=== PATIENT | male | born 1990 | race Caucasian/White ===

== ENCOUNTER → 2018-05-17 | Outpatient (CLI) | payer SELFPAY ==
[~2018-05-17] MED LIST: ABILIF5PT PO; CITA-145 PO; NYST15CR32 TP; OMEP-137 PO; PROL80 PO
[2018-05-17 14:45] LABS: PLATELET COUNT, AUTOMATED 418 K/uL (150-450)
== END ==
LOC: LAB 14:15
PROVIDERS: ATTEND Internal Medicine
DX: K21.9 Gastro-esophageal reflux disease without esophagitis (principal); F32.9 Major depressive disorder, single episode, unspecified; F41.9 Anxiety disorder, unspecified; F31.81 Bipolar II disorder
CPT/HCPCS: 36415; 81001; 82040; 82150; 82247; 82310; 82374; 82435; 82565; 82947; 83690; 84075; 84132; 84155; 84295; 84443; 84450; 84460; 84520; 85025

== ENCOUNTER 2018-08-17 17:16 | Emergency (ER) | payer OTHER ==
[~2018-08-17 17:16] MED LIST changes: -HYDR-4225
--- NOTE | 2018-08-17 17:24 | ER Report ---
History and Physical Time Seen By MD: 17:24 HPI/ROS CHIEF COMPLAINT: Abdominal pain HISTORY OF PRESENT ILLNESS: This is a 28-year-old female presents to the emergency department for abdominal pain. Patient states that around 10:00 last night she developed some right lower quadrant pain, progressively getting worse, some nausea no vomiting. Low-grade subjective fevers at home. Was seen and evaluated at urgent care today, white count of 13.7, had a negative UA, negative urine . Was trying scheduled for an outpatient ultrasound for tomorrow, patient states the pain became worse tonight therefore decided come in for further evaluation. Patient continues to have right lower quadrant pain, last bowel movement was about one and half to 2 days ago, this is not unusual for the patient. No dysuria. No shortness of breath or chest pain. REVIEW OF SYSTEMS: Constitutional: As above. Eyes: No discharge. ENT: No sore throat. Cardiovascular: No chest pain, no palpitations. Respiratory: No cough, no shortness of breath. Gastrointestinal: As above. Genitourinary: No hematuria. Musculoskeletal: No back pain. Skin: No rashes. Neurological: No headache. Allergies: Coded Allergies: No Known Drug Allergies (Unverified , 08/17/18) Home Meds Active Scripts Propranolol Hcl (PROPRANOLOL HCL) 80 Mg Capcr, 80 MG PO QDAY, #30 TAB 3 Refills Prov:MATT BURCIAGA MD 05/17/18 Omeprazole (OMEPRAZOLE) 20 Mg Tablet.dr, 20 MG PO QDAY, #30 TAB Prov:MATT BURCIAGA MD 05/17/18 Reported Medications Hydroxyzine Hcl (HYDROXYZINE HCL) 25 Mg Tablet 08/17/18 Aripiprazole (ABILIFY) 5 Mg Tablet, 5 MG PO QDAY, TAB 05/17/18 Citalopram Hydrobromide (CITALOPRAM HBR) 20 Mg Tablet, 20 MG PO QDAY, #5 TAB 05/17/18 Discontinued Scripts NYSTATIN [id number] UNT/ML Topical Cream (NYSTATIN 697161 UNT/ML Topical Cream) 15 Gm Cream..g., 15 GM TP BID, #15 GM 2 Refills Prov:MATT BURCIAGA MD 05/17/18 Past Medical/Surgical History Patient has a past medical and surgical history of headaches, GERD, bipolar, depression, anxiety, previous suicide attempt. Reviewed Nurses Notes: Yes Smoking Status: Never Smoker Constitutional Vital Sign - Last 24 Hours 08/17/18 08/17/18 08/17/18 08/17/18 17:21 17:30 17:45 18:15 Temp 98.4 Pulse 115 99 98 88 Resp 16 B/P (MAP) 114/75 113/79 (90) Pulse Ox 96 95 96 93 O2 Delivery Room Air 08/17/18 08/17/18 08/17/18 08/17/18 18:20 18:30 18:50 19:00 Pulse 85 74 B/P (MAP) 110/68 (82) 110/68 (82) Pulse Ox 91 94 Physical Exam General Appearance: The patient is alert, has no immediate need for airway protection and no signs of toxicity. Eyes: Pupils equal and round no pallor or injection. ENT, Mouth: Mucous membranes are moist. Respiratory: There are no retractions, lungs are clear to auscultation. Cardiovascular: Regular rate and rhythm. Gastrointestinal: Abdomen is soft, tenderness to the right lower quadrant, no rebound tenderness, mild discomfort to the right upper quadrant negative Villatoro sign. Normoactive bowel sounds, no masses or abdominal bruits. Neurological: Alert and oriented 4. Moving all cavities. Following. No focal neuro deficits. Skin: Warm and dry, no rashes. Musculoskeletal: Neck is supple non tender. Extremities are nontender, nonswollen and have full range of motion. DIFFERENTIAL DIAGNOSIS: After history and physical exam differential diagnosis was considered for abdominal pain in a female including but not limited to ovarian cyst, pelvic inflammatory disease, ovarian torsion, urinary tract infection, and appendicitis. Medical Decision Making EKG/Imaging Imaging PATIENT NAME: Juni Weldon : 1990 MR: [id number] V: [id number] EXAM DATE: ORDERING PHYSICIAN: TAMIKO JEAN BAPTISTE TECHNOLOGIST: Location: [facility] Patient: Juni Weldon : 1990 Visit/Account:[id number] Date of Sevice: 08/17/2018 EXAMINATION: CT abdomen with IV contrast CT pelvis with IV contrast HISTORY: Right lower quadrant abdominal pain and vomiting. COMPARISON: None. TECHNIQUE: Axial images were taken through the abdomen and pelvis with intravenous contrast. Sagittal and coronal reformatted images are also submitted. CONTRAST: 75 mL of IV Isovue-370 One of the following dose optimization techniques was utilized in the performance of this exam: Automated exposure control; adjustment of the mA and/or kV according to the patient's size; or use of an iterative reconstruction technique. Specific details can be referenced in the facility's radiology CT exam operational policy. FINDINGS: Liver/biliary: Negative. Pancreas: Negative. Spleen: Negative. Adrenal glands: Negative. Kidneys: Negative. Pelvic structures: Negative. Bowel: The bowel is normal caliber without obvious focal wall thickening. The appendix is normal. Peritoneum/retroperitoneum/mesenteries: Negative. No intraperitoneal free air or free fluid. Vessels: Negative. Musculoskeletal/body wall: Negative. Lymph node assessment: Negative. Lower chest: Negative. IMPRESSION: No CT evidence of acute pathology in the abdomen or pelvis. Normal appendix. Report Dictated By: Dawood Vallecillo MD at 08/17/2018 6:17 PM Report E-Signed By: Dawood Vallecillo MD at 08/17/2018 6:35 PM WSN:[id number] ED Course/Re-evaluation Clinical Indication for ER IV: IV Access ED Course The patient was admitted to room. A history and physical were obtained. Differential diagnoses were considered. I did not repeat the patient's laboratory studies as she had studies completed earlier today, I did a CT of the and pelvis which was negative for acute appendicitis, no intra-abdominal pathology identified. I did review the results with the patient. I did tell the patient is could be an early onset gastroenteritis, likely viral and will likely pass however I did recommend following up with her primary care provider for reevaluation. Patient expressed understanding, was agreeable with this plan care and discharged home. She was also given a 1 L normal saline bolus while in the ER, 4 mg IV Zofran, 4 mg IV morphine. Decision to Disposition Date: Aug 17, 2018 Decision to Disposition Time: 18:52 Depart Departure Latest Vital Signs Vital Signs Date Time Temp Pulse Resp B/P (MAP) Pulse Ox O2 Delivery O2 Flow Rate FiO2 08/17/18 19:00 110/68 (82) 08/17/18 18:50 74 94 08/17/18 17:21 98.4 16 Room Air Impression: Primary Impression: Abdominal pain Condition: Improved Disposition: HOME OR SELF-CARE Referrals: MATT BURCIAGA MD (PCP) 5 Days Patient Instructions: Acute Abdominal Pain (DC) Additional Instructions: There is no indication of appendicitis on your CT scan. You could be experiencing an early gastroenteritis, viral in nature and will likely pass. Please follow up with your PCP within the next 1-4 days for reevaluation. If you have worsening pain, fevers, chills return to the ED for reevaluation. Take Ibuprofen or Tylenol as needed for pain. Get plenty of rest. Drink plenty of water. Problem Qualifiers Primary Impression: Abdominal pain Abdominal location: right lower quadrant Qualified Codes: R10.31 - Right lower quadrant pain TAMIKO JEAN BAPTISTE GAS PRODUCER-BC Aug 17, 2018 17:24
[2018-08-17] MEDS ORDERED: HYDR-4225 (17:26)
[2018-08-17] MEDS ORDERED: NS(*) 0.9% 1000 ML BAG 1,000 ML IV ONE (17:37)
[2018-08-17] MEDS ORDERED: MORPHINE 4 MG/ML SDV IVP ONE (17:40)
[2018-08-17] MEDS ORDERED: ONDANSETRON 4 MG/2 ML VIAL IVP ONE (17:40)
[2018-08-17] MEDS ORDERED: IOPAMIDOL 76% 100 ML INFUS BTL 100 ML ONE (18:02)
--- NOTE | 2018-08-17 18:38 | RADIOLOGY IMAGING REPORT ---
FACILITY: [facility] [place] PATIENT NAME: Juni Weldon : 1990 MR: [id number] V: [id number] EXAM DATE: ORDERING PHYSICIAN: TAMIKO JEAN BAPTISTE TECHNOLOGIST: Location: [facility] Patient: Juni Weldon : 1990 Visit/Account:[id number] Date of Sevice: 08/17/2018 EXAMINATION: CT abdomen with IV contrast CT pelvis with IV contrast HISTORY: Right lower quadrant abdominal pain and vomiting. COMPARISON: None. TECHNIQUE: Axial images were taken through the abdomen and pelvis with intravenous contrast. Sagitt al and coronal reformatted images are also submitted. CONTRAST: 75 mL of IV Isovue-370 One of the following dose optimization techniques was utilized in the performance of this exam: Autom ated exposure control; adjustment of the mA and/or kV according to the patient's size; or use of an i terative reconstruction technique. Specific details can be referenced in the facility's radiology C T exam operational policy. FINDINGS: Liver/biliary: Negative. Pancreas: Negative. Spleen: Negative. Adrenal glands: Negative. Kidneys: Negative. Pelvic structures: Negative. Bowel: The bowel is normal caliber without obvious focal wall thickening. The appendix is normal. Peritoneum/retroperitoneum/mesenteries: Negative. No intraperitoneal free air or free fluid. Vessels: Negative. Musculoskeletal/body wall: Negative. Lymph node assessment: Negative. Lower chest: Negative. IMPRESSION: No CT evidence of acute pathology in the abdomen or pelvis. Normal appendix. Report Dictated By: Dawood Vallecillo MD at 08/17/2018 6:17 PM Report E-Signed By: Dawood Vallecillo MD at 08/17/2018 6:35 PM WSN:[id number]
[2018-08-17 19:00] VITALS: BP 110/68
== END 2018-08-17 19:05 | disposition home or self-care (01) ==
LOC: ER 17:35
DX: R10.31 Right lower quadrant pain (principal)
CPT/HCPCS: 96361; 96374; 96375; 99284; J2270; J2405; J7030; Q9967; 74177

== ENCOUNTER → 2018-08-17 | Outpatient (REF) | payer OTHER ==
[~2018-08-17] MED LIST changes: +HYDR-4225
[2018-08-17 15:36] LABS: PLATELET COUNT, AUTOMATED 308 K/uL (150-450)
== END ==
LOC: EDSEX → ZZSTITCHES 15:18
PROVIDERS: ATTEND Physician Assistant
DX: R10.31 Right lower quadrant pain (principal)
CPT/HCPCS: 82040; 82247; 82310; 82374; 82435; 82565; 82947; 84075; 84132; 84155; 84295; 84450; 84460; 84520; 85025; 86140